=== PATIENT | male | born 1980 | race African-American/Black ===

== ENCOUNTER 2024-05-31 22:50 | Emergency (ER) | payer MEDICAID ==
[~2024-05-31] VITALS: Ht 188 cm; Wt 99.8 kg
[2024-05-31 23:03] VITALS: BP_SYST 144; PULSE 94; RESP 19; TEMP 97.2; O2SAT 99
[2024-06-01] MEDS: DIPHTH,PERTUSS(ACELL),TET VAC 0.5 ML VIAL (Tdap) I.M. ONE (00:14)
[2024-06-01 00:39] VITALS: BP_SYST 149; PULSE 88; RESP 18; TEMP 97.8; O2SAT 98
== END 2024-06-01 00:38 | disposition home or self-care (01) ==
LOC: SED 22:50
DX: S61.012A Laceration without foreign body of left thumb without damage to nail, initial encounter (principal); Z23 Encounter for immunization; W26.0XXA Contact with knife, initial encounter; Y93.89 Activity, other specified; Y92.89 Other specified places as the place of occurrence of the external cause; Y99.8 Other external cause status
CPT/HCPCS: 90715; 99283